=== PATIENT | female | born 1995 | race Caucasian/White ===

== ENCOUNTER 2017-08-17 14:08 | Emergency (ER) | payer BC ==
--- NOTE | 2017-08-17 14:57 | UC ---
Respiratory Complaint HPI - HPI Summary HPI Summary: 21 year old female presents with complains of sinus congestion and epistaxsis - History of Current Complaint Stated Complaint: CHEST VIVIEN, COUGH W/BLOOD Hx Obtained From: Patient Hx Last Menstrual Period: on Depo Provera Onset/Duration: Sudden Onset, Lasting Days Severity Initially: Moderate Severity Currently: Moderate - Allergies/Home Medications Allergies/Adverse Reactions: Allergies Allergy/AdvReac Type Severity Reaction Status Date / Time No Known Allergies Allergy Verified 08/17/17 15:05 PMH/Surg Hx/FS Hx/Imm Hx Previously Healthy: Yes - Surgical History Surgical History: None - Family History Known Family History: Positive: None - Social History Alcohol Use: None Substance Use Type: None Smoking Status (MU): Never Smoked Tobacco - Immunization History Most Recent Influenza Vaccination: none Vaccination Up to Date: Yes Review of Systems Constitutional: Negative Skin: Negative Eyes: Negative ENT: Epistaxis, Nasal Discharge, Sinus Congestion, Sinus Pain/Tenderness Respiratory: Negative Cardiovascular: Negative Gastrointestinal: Negative Genitourinary: Negative Motor: Negative Neurovascular: Negative Musculoskeletal: Negative Neurological: Negative Psychological: Negative All Other Systems Reviewed And Are Negative: Yes Physical Exam Triage Information Reviewed: Yes Vital Signs Reviewed: Yes Eye Exam: Normal ENT: Positive: Nasal congestion, Nasal drainage, Sinus tenderness Dental Exam: Normal Neck exam: Normal Neck: Positive: 1 Respiratory Exam: Normal Cardiovascular Exam: Normal Abdominal Exam: Normal Musculoskeletal Exam: Normal Neurological Exam: Normal Psychological Exam: Normal Skin Exam: Normal Respiratory Course/Dx - Differential Dx/Diagnosis Provider Diagnoses: sinsuitis. bloody nose Discharge - Discharge Plan Condition: Stable Disposition: HOME Prescriptions: Amoxicillin/Clavulanate TAB* [Augmentin TAB 875*] 875 mg PO BID #20 tab Guaifenesin-Codeine [Cheratussin AC] 1 teasp PO Q8H PRN #120 ml MDD 15 PRN Reason: Cough LoraTADine TAB(NF) [Claritin 10 MG TAB(NF)] 10 mg PO DAILY #30 tab Patient Education Materials: Sinusitis (ED), Allergic Rhinitis (ED) Referrals: No Primary Care Phys,NOPCP [Primary Care Provider] -
[2017-08-17 15:05] VITALS: BP 129/64
== END 2017-08-17 15:17 | disposition home or self-care (01) ==
LOC: UCCORT 14:08
DX: J32.9 Chronic sinusitis, unspecified (principal); R04.0 Epistaxis
CPT/HCPCS: 99212; G0463

== ENCOUNTER 2017-08-28 08:21 | Emergency (ER) | payer BC ==
[2017-08-28 08:35] VITALS: BP 121/71
[2017-08-28] MEDS ORDERED: Lidocaine 2% PF * 5 ML VIAL INJ ONE (08:45)
--- NOTE | 2017-08-28 09:15 | UC ---
Skin Complaint HPI - HPI Summary HPI Summary: right big to pain x 2 weeks ingrown toenail right great toe + pain , swelling, redness of the toe - History of Current Complaint Chief Complaint: UCSkin Time Seen by Provider: 08/28/17 08:37 Stated Complaint: RIGHT BIG TOE SKIN COMPLAINT Hx Obtained From: Patient Hx Last Menstrual Period: unknown ?: No Onset/Duration: Gradual Onset, Lasting Weeks - 2, Still Present Timing: Constant Onset Severity: Moderate Current Severity: Moderate Location: Foot (Right) - right great toe Character: Swelling, Pain, Redness, Painful Aggravating Factor(s): Touch Alleviating Factor(s): Nothing Associated Signs & Symptoms: Positive: Drainage, Tenderness. Negative: Nausea, Vomiting, Rash, Bruising, Red Streaks - Allergy/Home Medications Allergies/Adverse Reactions: Allergies Allergy/AdvReac Type Severity Reaction Status Date / Time No Known Allergies Allergy Verified 08/28/17 08:30 Review of Systems Constitutional: Negative Skin: Negative Eyes: Negative ENT: Negative Respiratory: Negative Is Patient Immunocompromised?: No All Other Systems Reviewed And Are Negative: Yes PMH/Surg Hx/FS Hx/Imm Hx Previously Healthy: Yes - Surgical History Surgical History: None - Family History Known Family History: Positive: None Negative: Diabetes - Social History Alcohol Use: None Substance Use Type: None Smoking Status (MU): Never Smoked Tobacco - Immunization History Most Recent Influenza Vaccination: none Vaccination Up to Date: Yes Physical Exam Triage Information Reviewed: Yes Appearance: Well-Appearing, No Pain Distress, Well-Nourished Vital Signs: Initial Vital Signs Temp 98.1 F 08/28/17 08:31 Pulse 93 08/28/17 08:31 Resp 18 08/28/17 08:31 BP 121/71 08/28/17 08:31 Vital Signs Reviewed: Yes Eyes: Positive: Conjunctiva Clear ENT: Positive: Normal ENT inspection, Hearing grossly normal, Pharynx normal Neck exam: Normal Neck: Positive: Supple, Nontender, No Lymphadenopathy Respiratory: Positive: Chest non-tender, Lungs clear, Normal breath sounds Cardiovascular: Positive: RRR, No Murmur, Pulses Normal Skin: Positive: Other - ingrown toenail right great toe Course/Dx - Diagnoses Provider Diagnoses: ingrown toenail right great toe Procedures - Procedure Summary Procedure Summary: removal of ingrown toenail right great toe medial side area was prepped using alcohol pads anesthesia : 2 % plain lidocain x 5 cc ingrown toenail was removed pressure dressing was applied minimal bleeding pt. tolerated the procedure well Discharge - Discharge Plan Condition: Stable Disposition: HOME Prescriptions: Cephalexin CAP* [Keflex CAP*] 500 mg PO TID #21 cap Patient Education Materials: Ingrown Nail (ED) Referrals: No Primary Care Phys,NOPCP [Primary Care Provider] - 5 Days
== END 2017-08-28 09:15 | disposition home or self-care (01) ==
LOC: UCCORT 08:21
DX: L60.0 Ingrowing nail (principal)
CPT/HCPCS: 11765; 99212; G0463